=== PATIENT | female | born 1995 | race Caucasian/White ===

== ENCOUNTER → 2018-02-03 | Outpatient (CLI) | payer BC, OTHER | LOC: LAB 08:09 | DX: N39.0 Urinary tract infection, site not specified (principal); Z88.5 Allergy status to narcotic agent ==

== ENCOUNTER → 2018-03-24 | Outpatient (CLI) | payer BC, OTHER | LOC: RAD 11:10 | DX: M79.672 Pain in left foot (principal) ==

== ENCOUNTER → 2018-06-13 | Outpatient (CLI) | payer BC, OTHER | LOC: LAB 13:05 | DX: R30.0 Dysuria (principal) ==

== ENCOUNTER → 2018-07-13 | Outpatient (CLI) | payer BC, OTHER | LOC: RAD 10:25 | DX: M48.07 Spinal stenosis, lumbosacral region (principal); M53.3 Sacrococcygeal disorders, not elsewhere classified ==

== ENCOUNTER → 2018-07-22 | Outpatient (CLI) | payer BC, OTHER ==
[2018-07-22 10:07] LABS: BASO # 0.1 (0.02-0.10); EOS # 0.4 (0.04-0.40); EOS % 3.6 % (1.0-5.0); HEMATOCRIT 40.6 % (37.0-47.0); HEMOGLOBIN 13.2 g/dL (12.5-16.0); LYMPH# 2.6 (1.50-4.00); MEAN CELL VOLUME 89 fl (78-100); MEAN CORPUSCULAR HEMOGLOBIN 29 pg (27-31); MEAN CORPUSCULAR HGB CONC 33 g/dL (33-37); MEAN PLATELET VOLUME 11.3 fl (7.4-10.4); MONO # 0.6 (0.20-0.80); NEU # 7.4 (1.40-6.50); PLATELET COUNT 253 K/mm3 (130-400); RED BLOOD COUNT 4.58 M/mm3 (4.10-5.30); RED CELL DISTRIBUTION WIDTH 13.9 % (11.5-14.5); WHITE BLOOD COUNT 11.1 K/mm3 (4.8-10.8)
[2018-07-22 10:24] LABS: ALBUMIN 3.9 g/dL (3.5-5.0); POTASSIUM 4.4 mmol/L (3.6-5.0); TOTAL BILIRUBIN 0.6 mg/dL (0.2-1.3); TOTAL PROTEIN 6.9 g/dL (6.3-8.2)
== END ==
LOC: LAB 09:49
PROVIDERS: Family Medicine
DX: Z01.419 Encounter for gynecological examination (general) (routine) without abnormal findings (principal)

== ENCOUNTER → 2018-12-08 | Outpatient (CLI) | payer BC, OTHER | LOC: LAB 18:21 | DX: N76.0 Acute vaginitis (principal) ==

== ENCOUNTER → 2019-08-29 | Outpatient (CLI) | payer OTHER | LOC: LAB 16:19 | DX: K59.00 Constipation, unspecified (principal) ==

== ENCOUNTER → 2019-09-19 | Outpatient (CLI) | payer OTHER ==
[~2019-09-19] MED LIST: FLUOXETINE HCL20 MG PO; MUCINEX FAST-M180 M3 PO; PREDNISONE20 M1 PO; PROVENTIL0.09 MG/A1 IH; SPACE CHAMBER1 EACH MC; ZITHROMAX 250M250 MG PO
== END ==
LOC: RAD 11:37
DX: M54.9 Dorsalgia, unspecified (principal)

== ENCOUNTER 2019-10-01 09:05 | Emergency (ER) | payer OTHER ==
[~2019-10-01] VITALS: Ht 198.1 cm; Wt 122.7 kg
[2019-10-01] MEDS ORDERED: FLUOXETINE HCL20 MG PO (09:22)
[2019-10-01 10:08] LABS: HEMATOCRIT 43.5 % (37.0-47.0); HEMOGLOBIN 14.5 g/dL (12.5-16.0); MEAN CELL VOLUME 88 fl (78-100); MEAN CORPUSCULAR HEMOGLOBIN 29 pg (27-31); MEAN CORPUSCULAR HGB CONC 33 g/dL (33-37); MEAN PLATELET VOLUME 10.8 fl (7.4-10.4); PLATELET COUNT 314 K/mm3 (130-400); RED BLOOD COUNT 4.93 M/mm3 (4.10-5.30); RED CELL DISTRIBUTION WIDTH 13.7 % (11.5-14.5)
[2019-10-01 10:17] LABS: WHITE BLOOD COUNT 29.7 K/mm3 (4.8-10.8)
[2019-10-01 10:19] LABS: LYMPHOCYTE 4 % (20-51); MONOCYTE 3 % (3-10); NEUTROPHILS 92 % (42-75)
[2019-10-01 10:32] LABS: D-DIMER 0.24 mg/L FEU (0.15-0.50)
[2019-10-01] MEDS ORDERED: MUCINEX FAST-M180 M3 PO (12:24)
[2019-10-01] MEDS ORDERED: ZITHROMAX 250M250 MG PO (12:24)
[2019-10-01] MEDS ORDERED: PREDNISONE20 M1 PO (12:24)
[2019-10-01] MEDS ORDERED: PROVENTIL0.09 MG/A1 IH (12:27)
[2019-10-01] MEDS ORDERED: SPACE CHAMBER1 EACH MC (12:27)
[2019-10-01 12:34] VITALS: BP 135/88
== END 2019-10-01 12:42 | disposition home or self-care (01) ==
LOC: ED 09:05
PROVIDERS: Family Medicine
DX: J45.909 Unspecified asthma, uncomplicated (principal); Z87.891 Personal history of nicotine dependence
CPT/HCPCS: J0456; J2930; J7050

== ENCOUNTER → 2019-11-20 | Outpatient (CLI) | payer OTHER | LOC: RAD 09:38 | DX: M25.572 Pain in left ankle and joints of left foot (principal) ==

== ENCOUNTER → 2020-11-15 | Outpatient (CLI) | payer OTHER ==
[2020-11-15 14:04] LABS: BASO # 0.1 (0.02-0.10); EOS # 0.6 (0.04-0.40); EOS % 5.2 % (1.0-5.0); HEMATOCRIT 43.3 % (37.0-47.0); HEMOGLOBIN 13.7 g/dL (12.5-16.0); LYMPH# 2.3 (1.50-4.00); MEAN CELL VOLUME 90 fl (78-100); MEAN CORPUSCULAR HEMOGLOBIN 29 pg (27-31); MEAN CORPUSCULAR HGB CONC 32 g/dL (33-37); MEAN PLATELET VOLUME 10.7 fl (7.4-10.4); MONO # 0.6 (0.20-0.80); NEU # 7.2 (1.40-6.50); PLATELET COUNT 326 K/mm3 (130-400); RED CELL DISTRIBUTION WIDTH 13.7 % (11.5-14.5); WHITE BLOOD COUNT 10.8 K/mm3 (4.8-10.8)
[2020-11-15 14:14] LABS: ALBUMIN 3.9 g/dL (3.5-5.0); POTASSIUM 3.9 mmol/L (3.5-5.1)
[2020-11-15 14:15] LABS: CALCIUM 8.9 mg/dL (8.3-10.5)
[2020-11-15 14:16] LABS: TOTAL PROTEIN 6.8 g/dL (6.4-8.3)
[2020-11-15 14:18] LABS: TOTAL BILIRUBIN 0.3 mg/dL (0.2-1.2)
== END ==
LOC: LAB 13:45
PROVIDERS: Family Medicine
DX: Z00.00 Encounter for general adult medical examination without abnormal findings (principal); E78.5 Hyperlipidemia, unspecified; E03.9 Hypothyroidism, unspecified

== ENCOUNTER → 2021-08-13 | Outpatient (CLI) | payer OTHER | LOC: LAB 07:21 | DX: Z20.822 Contact with and (suspected) exposure to COVID-19 (principal) ==

== ENCOUNTER → 2021-11-07 | Outpatient (CLI) | payer OTHER | LOC: LAB 16:27 | DX: N39.0 Urinary tract infection, site not specified (principal) ==

== ENCOUNTER → 2021-11-17 | Outpatient (CLI) | payer OTHER | LOC: RAD 11:20 | DX: M47.816 Spondylosis without myelopathy or radiculopathy, lumbar region (principal) ==

== ENCOUNTER → 2021-11-26 | Outpatient (CLI) | payer OTHER ==
[2021-11-26 09:56] LABS: URINE APPEARANCE CLEAR; URINE BILIRUBIN NEGATIVE (NEGATIVE); URINE BLOOD 250 ery/uL (NEGATIVE); URINE COLOR YELLOW; URINE GLUCOSE NEGATIVE (NEGATIVE); URINE KETONE NEGATIVE (NEGATIVE); URINE LEUKOCYTE ESTERASE 1+ (NEGATIVE); URINE NITRATE NEGATIVE (NEGATIVE); URINE PROTEIN(semi-quant) NEGATIVE (NEGATIVE); URINE UROBILINOGEN NORMAL (NORMAL)
[2021-11-26 09:57] LABS: URINE MUCUS PRESENT (NOT PRESENT)
== END ==
LOC: LAB 09:25
PROVIDERS: Family Medicine
DX: N39.0 Urinary tract infection, site not specified (principal)

== ENCOUNTER 2021-12-16 10:00 | Outpatient (RCR) | payer OTHER | END 2021-12-16 17:00 | disposition home or self-care (01) | LOC: PT 10:00 | DX: M54.50 Low back pain, unspecified (principal) ==

== ENCOUNTER → 2022-04-13 | Outpatient (CLI) | payer OTHER | LOC: RAD 09:24 | DX: M51.37 Other intervertebral disc degeneration, lumbosacral region (principal); M47.817 Spondylosis without myelopathy or radiculopathy, lumbosacral region; M51.26 Other intervertebral disc displacement, lumbar region; M48.061 Spinal stenosis, lumbar region without neurogenic claudication ==

== ENCOUNTER → 2022-07-07 | Outpatient (CLI) | payer OTHER ==
[2022-07-08 09:47] LABS: PH-URINE 8.5 (5.0 - 8.0); URINE APPEARANCE CLOUDY; URINE BILIRUBIN NEGATIVE (NEGATIVE); URINE COLOR YELLOW; URINE GLUCOSE NEGATIVE (NEGATIVE); URINE KETONE NEGATIVE (NEGATIVE); URINE NITRATE POSITIVE (NEGATIVE); URINE PROTEIN(semi-quant) NEGATIVE (NEGATIVE); URINE UROBILINOGEN NORMAL (NORMAL)
[2022-07-08 09:48] LABS: URINE BLOOD NEGATIVE (NEGATIVE); URINE LEUKOCYTE ESTERASE TRACE (NEGATIVE); URINE MUCUS PRESENT (NOT PRESENT)
== END ==
LOC: LAB 16:53
PROVIDERS: Family Medicine
DX: M47.896 Other spondylosis, lumbar region (principal); M51.36 Other intervertebral disc degeneration, lumbar region; M48.061 Spinal stenosis, lumbar region without neurogenic claudication; M72.2 Plantar fascial fibromatosis; F31.9 Bipolar disorder, unspecified; F41.1 Generalized anxiety disorder; E66.9 Obesity, unspecified; G89.29 Other chronic pain; R30.9 Painful micturition, unspecified

== ENCOUNTER → 2022-07-15 | Outpatient (CLI) | payer OTHER | LOC: LAB 09:53 | DX: U07.1 COVID-19 (principal) ==

== ENCOUNTER → 2023-08-17 | Outpatient (CLI) | payer OTHER ==
[2023-08-17 09:44] LABS: HEMATOCRIT 42.5 % (37.0-47.0); HEMOGLOBIN 13.5 g/dL (12.5-16.0); LYMPH# 3.09 K/mm3 (1.50-4.00); MEAN CELL VOLUME 91 fl (78-100); MEAN CORPUSCULAR HEMOGLOBIN 29 pg (27-31); MEAN CORPUSCULAR HGB CONC 32 g/dL (33-37); MEAN PLATELET VOLUME 9.7 fl (7.4-10.4); MONO # 0.63 K/mm3 (0.20-0.80); NEU # 5.76 K/mm3 (1.40-6.50); PLATELET COUNT 319 K/mm3 (130-400); RED BLOOD COUNT 4.67 M/mm3 (4.10-5.30); RED CELL DISTRIBUTION WIDTH 13.8 % (11.5-14.5); WHITE BLOOD COUNT 10.1 K/mm3 (4.8-10.8)
[2023-08-17 09:47] LABS: ALBUMIN 4.2 g/dL (3.5-5.0)
[2023-08-17 09:48] LABS: CALCIUM 9.3 mg/dL (8.3-10.5)
[2023-08-17 09:49] LABS: TOTAL PROTEIN 7.5 g/dL (6.4-8.3)
[2023-08-17 09:51] LABS: TOTAL BILIRUBIN 0.3 mg/dL (0.2-1.2)
== END ==
LOC: LAB 09:22
PROVIDERS: Family Medicine
DX: Z00.00 Encounter for general adult medical examination without abnormal findings (principal); E55.9 Vitamin D deficiency, unspecified; E03.9 Hypothyroidism, unspecified; E78.5 Hyperlipidemia, unspecified; F90.9 Attention-deficit hyperactivity disorder, unspecified type; M72.2 Plantar fascial fibromatosis; F31.9 Bipolar disorder, unspecified; G89.29 Other chronic pain; M51.36 Other intervertebral disc degeneration, lumbar region; F41.1 Generalized anxiety disorder; M47.896 Other spondylosis, lumbar region; E66.9 Obesity, unspecified; M48.061 Spinal stenosis, lumbar region without neurogenic claudication

== ENCOUNTER 2024-02-24 17:25 | Emergency (ER) | payer OTHER ==
[~2024-02-24] VITALS: Ht 167.6 cm; Wt 159.5 kg
[~2024-02-24 17:25] MED LIST changes: +ALPRAZOLAM2 M3 PO; +DECADRON 4MG TAB4 MG PO; +FETZIMA80 MG PO; +GEODON60 MG PO; +LEXAPRO 10MG10 MG PO; +TIZANIDINE HYDRO4 MG PO
[2024-02-24] MEDS ORDERED: NS 1,000 ML IV SCH (18:00)
[2024-02-24 18:21] LABS: BASO # 0.04 K/mm3 (0.02-0.10); EOS # 0.09 K/mm3 (0.04-0.40); EOS % 0.7 % (1.0-5.0); HEMATOCRIT 43.8 % (37.0-47.0); LYMPH# 3.39 K/mm3 (1.50-4.00); MEAN CELL VOLUME 86 fl (78-100); MEAN CORPUSCULAR HEMOGLOBIN 28 pg (27-31); MEAN CORPUSCULAR HGB CONC 32 g/dL (33-37); MEAN PLATELET VOLUME 9.4 fl (7.4-10.4); MONO # 0.46 K/mm3 (0.20-0.80); NEU # 8.76 K/mm3 (1.40-6.50); PLATELET COUNT 387 K/mm3 (130-400); RED BLOOD COUNT 5.08 M/mm3 (4.10-5.30); RED CELL DISTRIBUTION WIDTH 12.5 % (11.5-14.5); WHITE BLOOD COUNT 12.8 K/mm3 (4.8-10.8)
[2024-02-24 18:28] LABS: ALBUMIN 4.2 g/dL (3.5-5.0)
[2024-02-24 18:30] LABS: CALCIUM 9.9 mg/dL (8.3-10.5)
[2024-02-24 18:31] LABS: TOTAL PROTEIN 8.1 g/dL (6.4-8.3)
[2024-02-24 18:33] LABS: TOTAL BILIRUBIN 0.4 mg/dL (0.2-1.2)
[2024-02-24] MEDS ORDERED: cefTRIAXone 1 G in Water For Injection,Sterile 10 ML IV ONE (18:45)
[2024-02-24] MEDS ORDERED: CEFDINIR300 MG PO (18:56)
[2024-02-24] MEDS ORDERED: REGLAN10 M2 PEG (18:56)
[2024-02-24] MEDS ORDERED: DIFLUCAN100 M1 PO (18:56)
[2024-02-24] MEDS ORDERED: Home Promethazine 25 MG #2 TAB/PACK PO ONE (19:00)
[2024-02-24 19:55] VITALS: BP 136/95
== END 2024-02-24 19:55 | disposition home or self-care (01) ==
LOC: ED 17:25
PROVIDERS: Family Medicine
DX: B37.0 Candidal stomatitis (principal); R11.2 Nausea with vomiting, unspecified; J32.9 Chronic sinusitis, unspecified; R00.0 Tachycardia, unspecified; E66.9 Obesity, unspecified
CPT/HCPCS: J0696; J2765; J7030

== ENCOUNTER 2024-06-05 13:55 | Emergency (ER) | payer OTHER ==
[~2024-06-05] VITALS: Ht 167.6 cm; Wt 152.3 kg
[~2024-06-05 13:55] MED LIST changes: +CEFDINIR300 MG PO; +DIFLUCAN100 M1 PO; +REGLAN10 M2 PEG
[2024-06-05] MEDS ORDERED: DIETHYLPROPION25 M3 PO (14:09)
[2024-06-05] MEDS ORDERED: Orphenadrine 60 MG/2ML AMP IM ONE (14:30)
[2024-06-05] MEDS ORDERED: Ketorolac 30 MG/ML VIAL IM ONE (14:30)
[2024-06-05] MEDS ORDERED: traMADol 50 MG TAB PO ONE (16:15)
[2024-06-05] MEDS ORDERED: TRAMADOL 50 MG TAB PO (16:24)
[2024-06-05 16:45] VITALS: BP 151/114
== END 2024-06-05 16:45 | disposition home or self-care (01) ==
LOC: ED 13:55
DX: M54.42 Lumbago with sciatica, left side (principal)
CPT/HCPCS: J1885; J2360

== ENCOUNTER → 2024-07-11 | Outpatient (CLI) | payer OTHER ==
[~2024-07-11] MED LIST changes: +DIETHYLPROPION25 M3 PO; +TRAMADOL 50 MG TAB PO
== END ==
LOC: RAD 15:30
DX: M51.36 Other intervertebral disc degeneration, lumbar region (principal); M48.061 Spinal stenosis, lumbar region without neurogenic claudication

== ENCOUNTER 2024-09-11 08:00 | Outpatient (RCR) | payer OTHER | END 2024-09-23 | LOC: PT | DX: M48.061 Spinal stenosis, lumbar region without neurogenic claudication (principal) ==

== ENCOUNTER → 2024-10-19 | Outpatient (CLI) | payer OTHER ==
[2024-10-19 09:21] LABS: ALBUMIN 4.1 g/dL (3.5-5.0)
[2024-10-19 09:23] LABS: CALCIUM 9.5 mg/dL (8.3-10.5)
[2024-10-19 09:24] LABS: TOTAL PROTEIN 7.5 g/dL (6.4-8.3)
[2024-10-19 09:26] LABS: TOTAL BILIRUBIN 0.3 mg/dL (0.2-1.2)
== END ==
LOC: LAB 09:00
PROVIDERS: Nurse Practitioner
DX: R63.5 Abnormal weight gain (principal); R60.0 Localized edema; E55.9 Vitamin D deficiency, unspecified

== ENCOUNTER → 2024-11-17 | Outpatient (CLI) | payer OTHER ==
[2024-11-17 11:55] LABS: BASO # 0.06 K/mm3 (0.02-0.10); EOS # 0.31 K/mm3 (0.04-0.40); EOS % 3.3 % (1.0-5.0); HEMATOCRIT 42.9 % (37.0-47.0); HEMOGLOBIN 13.6 g/dL (12.5-16.0); MEAN CELL VOLUME 85 fl (78-100); MEAN CORPUSCULAR HEMOGLOBIN 27 pg (27-31); MEAN CORPUSCULAR HGB CONC 32 g/dL (33-37); MONO # 0.57 K/mm3 (0.20-0.80); NEU # 5.94 K/mm3 (1.40-6.50); PLATELET COUNT 355 K/mm3 (130-400); RED BLOOD COUNT 5.05 M/mm3 (4.10-5.30); RED CELL DISTRIBUTION WIDTH 13.7 % (11.5-14.5); WHITE BLOOD COUNT 9.4 K/mm3 (4.8-10.8)
[2024-11-21 17:14] LABS: ALBUMIN 4.1 g/dL (3.5-5.0)
[2024-11-21 17:15] LABS: CALCIUM 9.6 mg/dL (8.3-10.5)
[2024-11-21 17:18] LABS: TOTAL BILIRUBIN 0.4 mg/dL (0.2-1.2)
== END ==
LOC: LAB 11:38
PROVIDERS: Nurse Practitioner
DX: R19.7 Diarrhea, unspecified (principal); R23.1 Pallor